=== PATIENT | male | born 1950 | race Caucasian/White ===

== ENCOUNTER 2021-11-01 07:23 | Outpatient (CLI) | payer MEDICARE, SELFPAY ==
--- NOTE | ~2021-11-01 | PE_ITS ---
EXAMINATION: PET skull to mid thigh DATE: 11/01/2021 10:27 INDICATION: Malignant neoplasm of lung. TECHNIQUE: Blood glucose level was 148 mg/dL. 10.273 mCi of 18-fluorodeoxyglucose (18-FDG) was admini stered i.v. Low dose computed tomography (CT) images were acquired from the base of the brain to the proximal thighs for attenuation correction and anatomic localization. Automated exposure control was employed. Dose-length product (DLP) was 584 mGy-cm. Positron emission tomography (PET) images were ac quired in the same distribution. COMPARISON: None FINDINGS: Head/neck: There is increased activity in the oral cavity and pharynx and glottis without abnormal CT correlate, likely physiologic. There are no pathologically enlarged lymph nodes. Chest: There is moderate emphysema. In the right lower lobe, there is a 6.9 x 5.0 cm mass with maximu m SUV of 3.1. There is mild scarring at right lung apex. There are changes of left upper lobectomy. N o pleural effusion. There are old healed left rib deformities with reconstruction material. The heart size is normal. No pericardial effusion. There is a large sliding hiatal hernia. Abdomen/pelvis/proximal thighs: There is a 14 mm cyst in the liver. Calcifications in the spleen are consistent with old granulomatous disease. The pancreas, adrenal glands, and kidneys are normal. The prostate is moderately enlarged. There are no pathologically enlarged lymph nodes. There is no free i ntraperitoneal fluid. There is severe lumbar spondylosis. IMPRESSION: 1. Mass in right lung lower lobe with increased activity, which may be pneumonia and/or malignancy. 2. Moderate emphysema. Reviewed, dictated and finalized at location A. IMPRESSION: 1. Mass in right lung lower lobe with increased activity, which may be pneumoni a and/or malignancy. 2. Moderate emphysema.
[2021-11-01 08:00] LABS: Glucose Point of Care 148 mg/dl (65-105)
== END 2021-11-01 07:24 | disposition home or self-care (01) ==
PROVIDERS: PCP Internal Medicine; Visit Provider Internal Medicine
DX: C34.90 Malignant neoplasm of unspecified part of unspecified bronchus or lung (principal); E11.9 Type 2 diabetes mellitus without complications; J43.9 Emphysema, unspecified; R91.1 Solitary pulmonary nodule
CPT/HCPCS: 78815; A9552